=== PATIENT | female | born 2000 | race Caucasian/White ===

== ENCOUNTER 2018-11-21 15:49 | Emergency (ER) ==
[2018-11-21 15:55] VITALS: BP 130/82; TEMP 99.9; BMI 27.3
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
== END 2018-11-21 20:18 | disposition home or self-care (01) ==
LOC: ED 15:49
DX: R07.9 Chest pain, unspecified (principal); R00.2 Palpitations; F41.9 Anxiety disorder, unspecified; F41.0 Panic disorder [episodic paroxysmal anxiety]; F43.0 Acute stress reaction
CPT/HCPCS: 36415; 80053; 80306; 80307; 81001; 84443; 85025; 87086; 93005; 93010; 99283